=== PATIENT | male | born 2000 | race Caucasian/White ===

== ENCOUNTER 2021-08-08 21:50 | Emergency (ER) | payer OTHER, MEDICAID, SELFPAY ==
--- NOTE | ~2021-08-08 | XR_ITS ---
EXAMINATION: XR HAND, RIGHT CLINICAL INFORMATION: Swelling of the little finger. COMPARISON: None TECHNIQUE: PA, lateral, and oblique views of the right hand. FINDINGS: No fracture. No dislocation. No acute abnormality. Negative ulnar variance. Ulnar shortening the radius by about 3 mm. No impaction changes of the radial ulnar joint. XR/XR hand RT min 3V IMPRESSION: No acute abnormality.
[2021-08-08 22:01] VITALS: BP 135/68; PULSE 75; RESP 18; TEMP 36.4; O2SAT 98; BMI 22.6
[2021-08-08 22:51] VITALS: BP 124/73; PULSE 81; RESP 14; TEMP 36.4; O2SAT 99
--- NOTE | 2021-08-08 22:55 | ED_ITS ---
HPI - Extremity Problem General Chief complaint: Extremity Injury, Upper Stated complaint: swollen knuckle Time Seen by Provider: 08/08/21 22:51 Source: patient Mode of arrival: ambulatory Limitations: no limitations History of Present Illness HPI Narrative: Patient comes to the emergency room complaining of pain over his right hand. Patient states that he punched a wall yesterday. Otherwise, patient has no oth er injuries Related Data Allergies Allergy/AdvReac Type Severity Reaction Status Date / Time No Known Allergies Allergy Verified 08/08/21 22:00 Review of Systems Review of Systems: Constitutional : No Weight loss, No Fever, No Chills, No Night Sweats, No Fatigue, No Malaise ENT/Mouth : No Hearing loss, No Ear Pain, No Nasal Congestion, No Sinus Pain, No Hoarseness, No sore throat, No Rhinorrhea, No Swallowing Difficulty Eyes: No Eye Pain, No Swelling, No Redness, No Foreign Body, No Discharge, No Vision Changes Cardiovascular : No Chest Pain, No SOB, No Dyspnea on Exertion, No Orthopnea, No Edema, No Palpitations Respiratory : No Cough, No Sputum, No Wheezing, No Smoke Exposure, No Dyspnea Gastrointestinal : No Nausea, No Vomiting, No Diarrhea, No Constipation, No abdominal Pain, No Hematochezia, No Melena Genitourinary : no irregular bleeding, No Dysuria, No Urinary Frequency, No Hematuria, No Urinary Incontinence, No Urgency, No Flank Pain, No Urinary Flow Changes, No Hesitancy Musculoskeletal complaining of pain in the dorsal aspect of the right hand No Myalgias, No Joint Swelling Skin : No Skin Lesions, No rash Neuro : No Weakness, No Numbness, No Paresthesias, No Loss of Consciousness, No Dizziness, No Headache Psych : No Anxiety/Panic, No Depression, No SI/HI/AH/VH, No Social Issues, Heme/Lymph: No Bruising, No Bleeding,No Lymphadenopathy Endocrine : No Polyuria, No Polydipsia, No Temperature Intolerance Physical Exam Vital Signs: Vital Signs: Last Vital Signs Temp 97.5 F 08/08/21 22:51 Pulse 81 08/08/21 22:51 Resp 14 08/08/21 22:51 BP 124/73 08/08/21 22:51 Pulse Ox 99 08/08/21 22:51 BMI result Body Mass Index 22.6 Const: Other: Appearance: Alert. Oriented X3. No acute distress. Eyes: Pupils equal, round and reactive to light. ENT: Pharynx normal. Neck: Normal inspection. Neck supple. No lymph nodes noted. No crepitus CVS: Normal heart rate and rhythm. Pulses normal. Normal S1 and S2 Respiratory: No respiratory distress. Breath sounds normal. No Wheezing. No rales Abdomen: Soft and nontender. No rigidity. No distention. good BS x4 Skin: Skin warm and dry. Patient has swelling over the 2nd and 3rd metacarpals, patient is able to flex and extend all fingers. Pain to palpation on dorsum of the hand over 3rd metacarpal Extremities: No lower extremity edema. No lower extremity edema. No Lacerations. No Rash Neuro: Oriented X 3. No motor deficit. No sensory deficit. Moving all extermities. No slurred speech. Course Course Course Narrative: I discussed the x-ray with the patient, no acute fractures. Patient states he has ibuprofen and Tylenol at home. MDM - Extremity (Nontraumatic) Imaging Data Hand x-ray: Radiologist's impression: No fracture. No dislocation. No acute abnormality. Negative ulnar variance. Ulnar shortening the radius by about 3 mm. No impaction changes of the radial ulnar joint.? XR/XR hand RT min 3V IMPRESSION: No acute abnormality. Discharge Plan Discharge Clinical Impression: Contusion of hand Patient Disposition: Home, Self-Care Instructions: Hematoma (ED) Additional Instructions: Please follow-up with your primary care physician tomorrow. If you have any worsening or new symptoms, please return to the emergency room or call 911
== END 2021-08-08 23:32 | disposition home or self-care (01) ==
LOC: HO.ED 23:31
PROVIDERS: Emergency Provider Emergency Medicine
DX: S60.221A Contusion of right hand, initial encounter (principal); M79.641 Pain in right hand; Y29.XXXA Contact with blunt object, undetermined intent, initial encounter; Y93.9 Activity, unspecified; Y92.9 Unspecified place or not applicable; Y99.9 Unspecified external cause status
CPT/HCPCS: 73130; 99283